=== PATIENT | male | born 1950 | race Caucasian/White ===

== ENCOUNTER 2016-10-04 03:29 | Emergency (ER) | payer MEDICARE, OTHER ==
[~2016-10-04] VITALS: Ht 188 cm; Wt 137.0 kg
[~2016-10-04 03:29] MED LIST: ALLO300T PO; CHOL500014 PO; MULT-658 PO; NAPR500T3 PO; SIMV20TA PO; VIT1CAPS10 PO
[2016-10-04] MEDS ORDERED: MAGN61TA PO (03:52)
[2016-10-04] MEDS ORDERED: CALC-545 PO (03:52)
[2016-10-04] MEDS ORDERED: ZINC100T PO (03:53)
[2016-10-04] MEDS ORDERED: DIPHENHYDRAMINE 50 MG/ML, 1ML ONE (04:22)
[2016-10-04] MEDS ORDERED: FAMOTIDINE 20 MG/2 ML ONE (04:23)
[2016-10-04] MEDS ORDERED: FAMOTIDINE 20 MG/2 ML IVPush ONE (04:30)
[2016-10-04] MEDS ORDERED: DIPHENHYDRAMINE 50 MG/ML, 1ML IVPush ONE (04:30)
[2016-10-04 05:09] VITALS: BP 111/43
[2016-10-04 05:09] LABS: ASPARTATE AMINO TRANSFERASE 17 U/L (15-37); BLOOD UREA NITROGEN 26 mg/dL (7-18)
== END 2016-10-04 05:36 | disposition home or self-care (01) ==
LOC: ED 05:15
DX: L27.0 Generalized skin eruption due to drugs and medicaments taken internally (principal); E78.5 Hyperlipidemia, unspecified
CPT/HCPCS: 36415; 80053; 96374; 96375; 99284; J1200; S0028

== ENCOUNTER 2016-10-28 16:35 | Emergency (ER) | payer MEDICARE, OTHER ==
[~2016-10-28] VITALS: Ht 188 cm; Wt 135.0 kg
[~2016-10-28 16:35] MED LIST changes: +CALC-545 PO; +MAGN61TA PO; +ZINC100T PO
[2016-10-28 16:41] VITALS: BP 170/79
[2016-10-28] MEDS ORDERED: FAMOTIDINE 20 MG TABLET ONE (17:29)
[2016-10-28] MEDS ORDERED: FAMOTIDINE 20 MG TABLET PO ONE (17:30)
== END 2016-10-28 17:50 | disposition home or self-care (01) ==
LOC: ED 17:44
DX: T78.40XA Allergy, unspecified, initial encounter (principal); L50.9 Urticaria, unspecified; X58.XXXA Exposure to other specified factors, initial encounter; E78.5 Hyperlipidemia, unspecified; Z88.1 Allergy status to other antibiotic agents
CPT/HCPCS: 99283; J7512

== ENCOUNTER 2016-10-29 03:18 | Emergency (ER) | payer MEDICARE, OTHER ==
[~2016-10-29] VITALS: Ht 188 cm; Wt 133.4 kg
[2016-10-29 03:20] VITALS: BP 138/73
== END 2016-10-29 04:48 | disposition home or self-care (01) ==
LOC: ED 04:00
DX: L50.9 Urticaria, unspecified (principal); M10.9 Gout, unspecified; E78.5 Hyperlipidemia, unspecified
CPT/HCPCS: 99281

== ENCOUNTER → 2018-02-15 | Outpatient (CLI) | payer MEDICARE, OTHER ==
[~2018-02-15] MED LIST changes: +AMOXICILLIN PO; -CHOL500014 PO; +CHOL500045 PO; +FURO20TA3 PO; +KETO15CR2 TP; +NAPR-685 PO; -NAPR500T3 PO
[2018-02-15 10:43] LABS: MICROSCOPIC NOT IND
[2018-02-15 10:47] LABS: ALANINE AMINOTRANSFERASE 31 U/L (12-78); ALBUMIN 4.1 g/dL (3.4-5.0); ANION GAP 8 mmol/L (5-15); CALCIUM 8.8 mg/dL (8.5-10.1); CHLORIDE 108 mmol/L (98-107); CREATININE 0.89 mg/dL (0.7-1.3)
[2018-02-15 10:50] LABS: ALKALINE PHOSPHATASE 69 U/L (45-117); BILIRUBIN,TOTAL 0.4 mg/dL (0.2-1.0); CULTURE INDICATED? NO; TOTAL PROTEIN 7.7 g/dL (6.4-8.2)
[2018-02-15 11:10] LABS: BASOPHILS # (AUTO) 0.03 x10^3/uL (0-0.1); BASOPHILS % (AUTO) 0 % (0-1); EOSINOPHILS # (AUTO) 0.09 x10^3/uL (0-0.4); EOSINOPHILS % (AUTO) 1 % (1-7); LYMPHOCYTES # (AUTO) 1.22 x10^3/uL (1-3.4); LYMPHOCYTES % (AUTO) 15 % (22-44); MD NO; MEAN CORPUSCULAR HGB CONC 34.1 g/dL (33.2-36.2); MEAN PLATELET VOLUME 8.4 fL (7.4-10.4); MONOCYTES # (AUTO) 0.61 x10^3/uL (0.2-0.8); MONOCYTES % (AUTO) 8 % (2-9); NEUTROPHILS % (AUTO) 76 % (42-75); PLATELET COUNT 231 x10^3/uL (130-400); RED BLOOD COUNT 4.87 x10^6/uL (4.38-5.82); RED CELL DISTRIBUTION WIDTH 13.8 % (9.4-14.8)
== END | disposition home or self-care (01) ==
LOC: STAR 09:12
PROVIDERS: ATTEND Orthopaedic Surgery
DX: Z01.818 Encounter for other preprocedural examination (principal); M16.12 Unilateral primary osteoarthritis, left hip
CPT/HCPCS: 36415; 80053; 81003; 85025; 87081; 93005

== ENCOUNTER 2020-04-24 14:52 | Emergency (ER) | payer MEDICARE ==
[~2020-04-24] VITALS: Ht 188 cm; Wt 146.4 kg
[~2020-04-24 14:52] MED LIST changes: +ASPI-496 PO; -CALC-545 PO; +CALC-780 PO; +KETO15CR17 TP; -KETO15CR2 TP; +OCUVITE SOFTGE1 EACH PO; +OXYC5CAP2 PO; -VIT1CAPS10 PO
--- NOTE | 2020-04-24 15:12 | NUR ---
PT COMES IN TODAY C/O RIGHT LOWER ABD QUADRANT PAIN AND "KIDNEY PAIN". PT STATES PAIN HAS GOTTEN WORSE IN THE LAST 2 HOURS. DESCRIBES PAIN 7-8/10. "2 HOURS AGO IT WAS DEFINETLY A 10" PT HAD TELEMED VISIT THIS MORNING WHO ADVISED PT TO COME TO ED IF PAIN INCREASED. PT HAS ORDER FOR CT ABD W/CONTRAST. PT STATES HX OF KIDNEY STONES 10 YEARS AGO. MONITORS CONNECTED. CALL LIGHT W/IN REACH.
[2020-04-24] MEDS ORDERED: ONDANSETRON 2MG/ML, 2ML ONE (15:56)
[2020-04-24] MEDS ORDERED: MORPHINE SULFATE 4 MG/ML, 1ML ONE (15:56)
[2020-04-24] MEDS ORDERED: MORPHINE SULFATE 4 MG/ML, 1ML IVPush ONE (16:00)
[2020-04-24] MEDS ORDERED: ONDANSETRON 2MG/ML, 2ML IVPush ONE (16:00)
[2020-04-24 16:13] LABS: BASOPHILS % (AUTO) 0 % (0-1); EOSINOPHILS % (AUTO) 0 % (1-7); LYMPHOCYTES % (AUTO) 6 % (22-44); MEAN CORPUSCULAR HEMOGLOBIN 30.7 pg (27.5-34.5); MEAN CORPUSCULAR HGB CONC 34.3 g/dL (33.2-36.2); MEAN PLATELET VOLUME 7.4 fL (7.4-10.4); MONOCYTES % (AUTO) 9 % (2-9); NEUTROPHILS % (AUTO) 85 % (42-75); PLATELET COUNT 202 x10^3/uL (130-400); RED BLOOD COUNT 4.52 x10^6/uL (4.38-5.82); RED CELL DISTRIBUTION WIDTH 13.8 % (9.4-14.8)
[2020-04-24 16:25] LABS: ALANINE AMINOTRANSFERASE 26 U/L (12-78); ALBUMIN 3.7 g/dL (3.4-5.0); ANION GAP 6 mmol/L (5-15); CALCIUM 8.6 mg/dL (8.5-10.1); CHLORIDE 99 mmol/L (98-107); CREATININE 1.21 mg/dL (0.7-1.3)
[2020-04-24 16:26] LABS: ALKALINE PHOSPHATASE 66 U/L (45-117); BILIRUBIN,TOTAL 0.6 mg/dL (0.2-1.0); TOTAL PROTEIN 7.7 g/dL (6.4-8.2)
[2020-04-24] MEDS ORDERED: HYDROmorphone 2 MG/ML, 1ML ONE (16:29)
[2020-04-24] MEDS ORDERED: ONDANSETRON ODT 4 MG ONE (16:30)
[2020-04-24] MEDS ORDERED: ONDANSETRON ODT 4 MG PO ONE (16:30)
[2020-04-24] MEDS ORDERED: HYDROmorphone 1 MG/ML, 1ML INJ IM ONE (16:30)
[2020-04-24] MEDS ORDERED: NAPROXEN 500 MG TABLET PO ONE (16:30)
[2020-04-24 16:37] LABS: MD SCAN
[2020-04-24 16:42] LABS: MICROSCOPIC AUTO
--- NOTE | 2020-04-24 16:46 | NUR ---
ORDERED MEDICATIONS ADMINISTERED. DR. MALAGON AT BEDSIDE TO DISCUSS RESULTS AND PLAN OF CARE. UA COLLECTED.
--- NOTE | 2020-04-24 17:12 | NUR ---
PT TO DISCHARGE VIA WHEELCHAIR. PT AND ENCOURAGED TO FOLLOWUP DISCUSSED. PT AND EDUCATED TO RETURN TO THE ED W/WORSENING SYMPTOMS.
[2020-04-24 17:13] VITALS: BP 140/66
== END 2020-04-24 17:15 | disposition home or self-care (01) ==
LOC: ED 15:45
DX: N13.2 Hydronephrosis with renal and ureteral calculous obstruction (principal); R10.31 Right lower quadrant pain; M10.9 Gout, unspecified; E78.5 Hyperlipidemia, unspecified
CPT/HCPCS: 36415; 74176; 80053; 81001; 83690; 85025; 96372; 99284; J1170; Q0162